=== PATIENT | male | born 1970 | race Caucasian/White ===

== ENCOUNTER 2020-03-26 20:42 | Emergency (ER) | payer BC ==
[~2020-03-26] VITALS: Ht 188 cm; Wt 99.5 kg
[2020-03-26 20:45] VITALS: BP 143/89
[2020-03-26] MEDS ORDERED: PROPARACAINE OPHTH 0.5%, 15ML EACHEYE ONE (21:30)
[2020-03-26] MEDS ORDERED: FLUORESCEIN OPHTHALMIC 1 MG STRIP EACHEYE ONE (21:30)
[2020-03-26] MEDS ORDERED: FLUORESCEIN OPHTHALMIC 1 MG STRIP ONE (21:34)
[2020-03-26] MEDS ORDERED: PROPARACAINE OPHTH 0.5%, 15ML ONE (21:34)
== END 2020-03-26 21:51 ==
LOC: ED 21:30
DX: H10.11 Acute atopic conjunctivitis, right eye (principal)
CPT/HCPCS: 99283